=== PATIENT | male | born 1940 | race Caucasian/White ===

== ENCOUNTER 2017-06-24 20:52 | Emergency (ER) | payer MEDICARE, OTHER ==
[~2017-06-24] VITALS: Ht 172.7 cm; Wt 86.2 kg
[~2017-06-24 20:52] MED LIST: ADULT LOW DOSE81 MG PO; ASPIRIN325 PO; CLOPIDOGREL PO; IMDUR 30 MG TAB30 M1 PO; IMDUR 60 MG TAB60 M1 PO; LOPRESSOR25 PO; NEXIUM40 MG PO; NITROGLYCERIN0.4 MG SL; NITROSTAT0.4 MG SL; PLAVIX 75 MG TA75 M1 PO; PLAVIX 75 MG TA75 MG PO; RANEXA1000 MG PO; TOPROL XL25 MG PO; VYTORIN 10-201 EACH PO
[2017-06-24 21:23] LABS: HEMATOCRIT 40.4 % (42.0-52.0); HEMOGLOBIN 13.8 gm/dL (14.0-18.0); MCHC 34.2 g/dL (28.0-37.0); MCV 99.5 fL (80.0-100.0); MPV 8.5 fl. (7.2-11.1); NUCLEATED RBCS 0 /100WBC; PLATELET COUNT* 201 thou/uL (150-400); RBC 4.06 mil/uL (4.50-6.00); RDW-CV 13.2 % (10.5-14.5); WBC 8.3 thou/uL (4.0-11.0)
[2017-06-24 21:34] LABS: ANION GAP 11 mmol/L (7-16); BUN 24 mg/dL (7-18); CALCIUM 8.9 mg/dL (8.5-10.1); CHLORIDE 105 mmol/L (98-107); CO2 25 mmol/L (21-32); GLUCOSE 135 mg/dL (70-99); POTASSIUM 3.9 mmol/L (3.5-5.1); SODIUM 141 mmol/L (136-145)
[2017-06-24 21:36] LABS: APTT 22.9 Seconds (25.0-31.3); INR 1.1; PROTIME 11.1 Seconds (9.20-11.50)
[2017-06-24 21:45] LABS: ALBUMIN 3.5 g/dL (3.4-5.0); ALKALINE PHOSPHATASE 49 U/L (46-116); LIPASE 79 U/L (73-393); MAGNESIUM 1.6 mg/dL (1.8-2.4); SGOT 22 U/L (15-37); SGPT 27 U/L (30-65); TOTAL BILIRUBIN 1.2 mg/dL (<0.1-1.0); TOTAL PROTEIN 7.2 g/dL (6.4-8.2); TROPONIN-I LEVEL <0.06 ng/mL (<0.06)
[2017-06-24 22:00] LABS: ABSOLUTE LYMPHOCYTES 0.2 thou/uL (0.8-5.3); ABSOLUTE MONOCYTES 0.3 thou/uL (0.0-1.2); ABSOLUTE NEUTROPHILS 7.8 thou/uL (1.6-8.1)
[2017-06-24 22:01] LABS: PLATELET ESTIMATE ADEQUATE
[2017-06-24 22:10] LABS: MACROCYTES Occasional; POLYCHROMASIA Occasional
[2017-06-24 22:15] LABS: CK-MB MASS 1.5 ng/mL (<0.5-3.6)
[2017-06-24] MEDS ORDERED: ZOFRAN ODT4 MG SUBLING (22:24)
[2017-06-24 22:33] LABS: NT-PRO BRAIN NAT PEPTIDE 132 pg/mL (<300)
[2017-06-24 23:08] VITALS: BP 120/72
--- NOTE | 2017-06-25 11:48 | EKG ---
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
== END 2017-06-24 23:12 | disposition home or self-care (01) ==
LOC: M.ERS 20:52
PROVIDERS: Family Medicine
DX: B34.9 Viral infection, unspecified (principal); E78.00 Pure hypercholesterolemia, unspecified; K21.9 Gastro-esophageal reflux disease without esophagitis; Z98.890 Other specified postprocedural states

== ENCOUNTER → 2017-08-03 | Outpatient (CLI) | payer MEDICARE, OTHER ==
[~2017-08-03] MED LIST changes: +ZOFRAN ODT4 MG SUBLING
[2017-08-03 12:02] LABS: CHOLESTEROL 126 mg/dL (<200); HDL CHOLESTEROL 68 mg/dL (>40); LDL CHOLESTEROL 44 mg/dL (<100); TC:HDL 1.9 Ratio (Not establshd); TRIGLYCERIDE 70 mg/dL (<150); VLDL 14 mg/dL (<40)
[2017-08-03 12:03] LABS: SERUM ASSESSMENT CLEAR
== END ==
LOC: M.LAB 11:01
PROVIDERS: Internal Medicine Cardiovascular Disease
DX: I25.10 Atherosclerotic heart disease of native coronary artery without angina pectoris (principal); E78.2 Mixed hyperlipidemia

== ENCOUNTER → 2018-05-10 | Outpatient (CLI) | payer MEDICARE, OTHER ==
[2018-05-10 10:58] LABS: CALCIUM 8.9 mg/dL (8.5-10.1); POTASSIUM 4.2 mmol/L (3.5-5.1)
== END ==
LOC: M.LAB 10:16
PROVIDERS: Nurse Practitioner
DX: M48.54XD Collapsed vertebra, not elsewhere classified, thoracic region, subsequent encounter for fracture with routine healing (principal); I25.10 Atherosclerotic heart disease of native coronary artery without angina pectoris; E87.0 Hyperosmolality and hypernatremia; R06.09 Other forms of dyspnea; R06.2 Wheezing

== ENCOUNTER → 2018-06-21 | Outpatient (CLI) | payer MEDICARE, OTHER ==
[2018-06-21 10:11] LABS: ANION GAP < 0 mmol/L (7-16); BUN 15 mg/dL (7-18); CALCIUM 8.8 mg/dL (8.5-10.1); CHLORIDE 98 mmol/L (98-107); CO2 28 mmol/L (21-32); CREATININE 1.1 mg/dL (0.6-1.3); GLUCOSE 110 mg/dL (70-99); NT-PRO BRAIN NAT PEPTIDE 80 pg/mL (<300); POTASSIUM 3.6 mmol/L (3.5-5.1); SODIUM 120 mmol/L (136-145)
== END ==
LOC: M.LAB 09:12
PROVIDERS: Nurse Practitioner
DX: R06.09 Other forms of dyspnea (principal)

== ENCOUNTER → 2018-07-03 | Outpatient (CLI) | payer MEDICARE, OTHER ==
[2018-07-03 10:42] LABS: CALCIUM 8.8 mg/dL (8.5-10.1); POTASSIUM 4.1 mmol/L (3.5-5.1)
== END ==
LOC: M.LAB 09:50
PROVIDERS: Internal Medicine Cardiovascular Disease
DX: E87.1 Hypo-osmolality and hyponatremia (principal)

== ENCOUNTER → 2018-07-17 | Outpatient (CLI) | payer MEDICARE, OTHER ==
[2018-07-17 10:55] LABS: POTASSIUM 4.2 mmol/L (3.5-5.1)
== END ==
LOC: M.LAB 10:30
PROVIDERS: Internal Medicine Cardiovascular Disease
DX: E87.1 Hypo-osmolality and hyponatremia (principal)

== ENCOUNTER → 2018-08-01 | Outpatient (CLI) | payer MEDICARE, OTHER ==
--- NOTE | 2018-08-03 07:53 | PF ---
[address] [address] PULMONARY FUNCTION REPORT Name: ANGELINA HAYDEN Room: [facility].#: [id number] Admission: 08/01/18 Attend Phys: Phoebe Hess RN Discharge: Date of : 44 Report #: [id number] THIS REPORT FOR: //name// CC: KATHYA physician/PCP Phoebe Hess DATE OF SERVICE: 08/01/2018 Phoebe Hess, nurse practitioner is the primary care physician. I think she is with Cardiology, so send it to the Cardiology office, Dr. Thompson or Dr. Carroll. The patient is a 78-year-old male with cough, wheezing and bronchospasm. Pulmonary function studies are indicated to evaluate for airflow obstruction. Spirometry demonstrates mild obstructive defect. He has some mild decrease in mid flow rates. Best FEV1 was 2.4 with an FVC of 3.3, ratio is 72%, FEV1 is 83% of predicted, FVC is 83% of predicted. Mid flow rates are 66% diminished, mostly 25-75. Lung volumes performed by plethysmography within normal limits. Diffusion is within normal limits. IMPRESSION: The patient abnormalities suggest mild obstructive defect. 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 He has cough with expiratory wheezing. No improvement after bronchodilator was noted. No complications to the above procedure were noted. <ELECTRONICALLY SIGNED> By: Valentín Stark MD 08/03/18 0753 [id number] Stark MD /joelle
== END ==
LOC: M.PUL 09:30
DX: R06.2 Wheezing (principal); R06.02 Shortness of breath

== ENCOUNTER → 2020-01-14 | Outpatient (CLI) | payer MEDICARE, OTHER | LOC: M.ULTRA 09:49 | PROVIDERS: ATTEND Family Medicine | DX: R17 Unspecified jaundice (principal); R10.9 Unspecified abdominal pain ==